=== PATIENT | female | born 1970 | race Caucasian/White ===

== ENCOUNTER 2021-03-11 05:51 | Inpatient (IN) | payer OTHER ==
[2021-03-11] VITALS (32 sets, daily range): BP systolic 65–144; BP diastolic 27–119
[~2021-03-11] VITALS: Ht 180.3 cm; Wt 103.7 kg
--- NOTE | ~2021-03-11 | EMS ---
[address] [address] EMS Patient Care Report Name: RIKI RADFORD Room #: REG [facility]UELA Thomas#: [id number] Admission: 03/11/21 Attend Phys: Discharge: Date of : 70 Report #: [id number] THIS REPORT FOR: //name// Report Transmitted: 03/11/2021 05:54 EMS Care Summary [place], [place]/[facility] Incident [id number] @ 03/11/2021 05:20 Incident Location [address] [place] [address]-A Patient RIKI RADFORD Female, 50 Years 1970 Patient Address [address] [place], [place] [id number] Patient History Chronic Obstructive Pulmonary Disease (COPD),Diabetes,Hypertension (HTN),Hyperlipidemia,Schizophrenia,Sleep Apnea,Chronic Kidney Disease,Novel Coronavirus (COVID-19), Patient Allergies No known allergies, Chief Complaint altered LOC Disposition Transported [place] Reason [place] [facility] [place] SOB when they checked on her. pt normally on CPAP with 2L 02, all night. staff unable to obtain O2sat. we find pt in bed w/ head elevated, laboring to breath @ 50/min. she normally will answer "yes/no" questions but [address] [address] EMS Patient Care Report Name: RIKI RADFORD Room #: [facility]#: [id number] Admission: 03/11/21 Attend Phys: Discharge: Date of : 70 Report #: [id number] now only grunts and moans. pt ext appear mottled. she has a midline IV R upper arm in place b/c she has been getting IV fluids for dehydration. pt has rec 2 liters fluid since yesterday per staff. pt 02 sat on CPAP is 70%. pt placed on B, to cot w/ head elevated, EKG, VS, temp 104.5. transport emergency to closest ER. 02 sat increased to 83%, no other changes. report to RN rm 6 Initial Vitals @05:45P: 130,R: 50,SpO2: 83, @05:39P: 130,R: 50,BP: 66/43,GCS: 7,Temp: 104.5F,Glucose: 298,SpO2: 70,Revised Trauma: 7, Assessments @05:30MENTAL:Unresponsive,SKIN:Hot,Mottled,HEENT:Head/Face: No Abnormalities,LUNG SOUNDS:ABDOMEN:PELVIS//GI:EXTREMITIES:Right Arm: Other,PULSE:Radial: 1+ Thready,NEURO:@05:45MENTAL:SKIN:HEENT:LUNG SOUNDS:ABDOMEN:PELVIS//GI:EXTREMITIES:PULSE:NEURO: Impression Altered Mental Status Procedures @05:30ALS AssessmentResponse: Unchanged@05:34StretcherResponse: Unchanged@05:32Oxygen FlowRate: 15 Device: Non Re-breather Mask (NRB) Response: Improved@05:373-Lead ECGResponse: Unchanged Timeline 05:19,Call Received 05:19,Dispatch Notified 05:20,Dispatched 05:22,En Route 05:27,On Scene 05:30,At Patient 05:30,ALS Assessment,Response: Unchanged 05:32,Oxygen FlowRate: 15 Device: Non Re-breather Mask (NRB) Response: Improved 05:34,Stretcher,Response: Unchanged 05:37,3-Lead ECG,Response: Unchanged 05:39,BP: 66/43 M,PULSE: 130,RR: 50 R,SPO2: 70 Ox,ETCO2: ,B,PAIN: ,GCS: 7, 05:39,Depart Scene 05:45,BP: / M,PULSE: 130,RR: 50 R,SPO2: 83 Ox,ETCO2: ,BG: ,PAIN: ,GCS: , 05:47,At Destination 06:10,Call Closed Disclaimer v1.1 Copyright 2020 [employer] [place] [address] EMS Patient Care Report Name: RIKI RADFORD Room #: REG MANUEL[facility] Thomas#: [id number] Admission: 03/11/21 Attend Phys: Discharge: Date of : 70 Report #: [id number] This EMS Care Summary contains data elements from the applicable legal record (which may be displayed differently). It is designed to provide pertinent information for the following purposes: continuity of care, clinical quality, and state data reporting. The complete legal record is available to ED staff and administrators of the receiving hospital in [facility]'s Patient Tracker. All data is provided "as is."
[2021-03-11 06:15] LABS: HEMATOCRIT 40.6 % (37.0-47.0); HEMOGLOBIN 11.7 gm/dL (12.0-15.0); MCH 26.8 pg (26.0-34.0); MCHC 28.8 g/dL (28.0-37.0); MCV 93.2 fL (80.0-100.0); PLATELET COUNT 160 thou/uL (150-400); RBC 4.35 mil/uL (4.20-5.00); RDW 18.4 % (10.5-14.5); WBC 13.9 thou/uL (4.0-11.0)
[2021-03-11 06:37] LABS: ALBUMIN 2.4 g/dL (3.4-5.0); CALCIUM 8.5 mg/dL (8.5-10.1); CREATININE 3.8 mg/dL (0.6-1.0); POTASSIUM 4.6 mmol/L (3.5-5.1); TOTAL BILIRUBIN 0.3 mg/dL (0.2-1.0); TOTAL PROTEIN 7.1 g/dL (6.4-8.2)
[2021-03-11 08:36] LABS: ABSOLUTE NEUTROPHILS 12.1 thou/uL (1.4-8.2); NUCLEATED RBCS 2 /100WBC
[2021-03-11 08:37] LABS: ANISOCYTOSIS 2+
--- NOTE | 2021-03-11 09:25 | EKG ---
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 : 1970 Requested By: Jeremy Lott Order Number: [id number] MD: Troy Burgess Measurements Intervals [place] Rate: 129 P: -24 MO: 128 QRS: -5 QRSD: 56 T: QT: 350 QTc: 513 Interpretive Statements Sinus tachycardia Paired ventricular premature complexes Aberrant conduction of SV complex(es) Consider right atrial enlargement Nonspecific repol abnormality, diffuse leads Minimal ST elevation, inferior leads Prolonged QT interval No previous ECG available for comparison Electronically Signed On 03-11-2021 9:25:36 CDT by Troy Burgess [email or web address] <ELECTRONICALLY SIGNED> By: Troy Burgess MD, [facility] 03/11/21924 Troy Burgess MD, [facility] /EPI
[2021-03-11 10:36] LABS: BE(vivo) -16.8 mmol/L (-2 to +3); HCO3 9.5 mmol/L (22.0-26.0); sO2 98.7 % (92.0-98.0)
[2021-03-11 10:37] LABS: PCO2 24.6 mmHg (35.0-45.0); pH 7.205 (7.360-7.450)
[2021-03-11 15:11] LABS: CREATININE 3.5 mg/dL (0.6-1.0); MAGNESIUM 2.1 mg/dL (1.8-2.4)
[2021-03-11 15:15] LABS: CALCIUM 6.1 mg/dL (8.5-10.1)
--- NOTE | 2021-03-11 15:33 | 2DMMODE ---
[facility] [place] [address] 2 D/M-MODE ECHOCARDIOGRAM Name: RIKI RADFORD Room #: 248-P ADM IN M.R.#: [id number] Admission: 03/11/21 Attend Phys: Garrick Ge MD Discharge: Date of : 70 Report #: [id number] THIS REPORT FOR: cc: Nicolas Hendricks MD, Srinath MD Park, Jin S. MD ~ APPROVED REPORT Study performed: 03/11/2021 14:43:51 EXAM: Limited 2D, Doppler, and color-flow Echocardiogram Patient Location: ER Status: routine BSA: 2.48 HR: 160 bpm BP: 65/37 mmHg Rhythm: Tachycardia Other Information Study Quality: Poor/very limited exam Technically limited study due to patient on vent in trendelenburg position. Morbid obesity, tachycardia. Indications Tacycardia, hypotensive, respiratory failure. Hx: COPD, COVID-19 (12/2020). Aortic Valve AoV Peak Yair.: 1.36 m/s AO Peak Gr.: 7.42 mmHg Tricuspid Valve TR Peak Yair.: 2.32 m/s RAP Estimate: 5.00 mmHg TR Peak Gr.: 21.47 mmHg PA Pressure: 26.00 mmHg Left Ventricle Technically limited study Left ventricle is normal size. Left ventricular systolic function appears normal (60%). This study is not technically sufficient to allow evaluation of the LV diastolic function. Right Ventricle Appears normal in size and function. [facility] [address] [place] [address] 2 D/M-MODE ECHOCARDIOGRAM Name: RIKI RADFORD Room #: 248-P ADM IN M.R.#: [id number] Admission: 03/11/21 Attend Phys: Garrick Ge MD Discharge: Date of : 70 Report #: [id number] Atria Both atria appear normal in size. Aortic Valve The aortic valve is not well visualized. No aortic regurgitation is noted. There is no aortic valvular stenosis. Mitral Valve There is mitral annular calcification. Trace mitral regurgitation. Tricuspid Valve The tricuspid valve is normal in structure. Trace tricuspid regurgitation. Pulmonic Valve Pulmonic valve is not well visualized. Great Vessels IVC is normal in size and collapses >50% with inspiration. Pericardium There is no pericardial effusion. <Conclusion> Technically limited study Left ventricle is normal size. Left ventricular systolic function appears normal (60%). Appears normal in size and function. Both atria appear normal in size. The aortic valve is not well visualized. Trace mitral regurgitation. Trace tricuspid regurgitation. <ELECTRONICALLY SIGNED> By: Jeffrey Guzman MD 03/11/21 1532 [id number] 1532 Jeffrey Guzman MD /INF
[2021-03-11 17:06] LABS: HEMATOCRIT 33.4 % (37.0-47.0); MCH 26.7 pg (26.0-34.0); MCHC 28.4 g/dL (28.0-37.0); MCV 94.2 fL (80.0-100.0); RBC 3.55 mil/uL (4.20-5.00); WBC 24.1 thou/uL (4.0-11.0)
[2021-03-11 17:12] LABS: CALCIUM 6.7 mg/dL (8.5-10.1); CREATININE 3.9 mg/dL (0.6-1.0); POTASSIUM 4.3 mmol/L (3.5-5.1)
[2021-03-11 17:14] LABS: HEMOGLOBIN 9.5 gm/dL (12.0-15.0)
[2021-03-11] MEDS ORDERED: PAIN RELIEVER325 MG PO (20:43)
[2021-03-11] MEDS ORDERED: VITCB500GO PO (20:43)
[2021-03-11] MEDS ORDERED: LIPITOR40 MG PO (20:44)
[2021-03-11] MEDS ORDERED: ASA81BEC PO (20:44)
[2021-03-11] MEDS ORDERED: CEFTRIAXON1 GM/50 ML IV (20:45)
[2021-03-11] MEDS ORDERED: CHOLECALCIFEROL PO (20:47)
[2021-03-11] MEDS ORDERED: FLEXERIL PO (20:48)
[2021-03-11] MEDS ORDERED: DEPAKOTE500 MG PO (20:49)
[2021-03-11] MEDS ORDERED: DEXAMETHASONE 22 M1 PO (20:50)
[2021-03-11] MEDS ORDERED: ERGOCALCIFEROL PO (20:51)
[2021-03-11] MEDS ORDERED: FUROSEMIDE 20 M20 MG PO (20:52)
[2021-03-11] MEDS ORDERED: IPRATROPIUM/ALBUTERO INH (20:54)
[2021-03-11] MEDS ORDERED: JUVEN PACKET1 EAC1 PO (20:54)
[2021-03-11] MEDS ORDERED: LORAZEPAM 0.50.5 MG PO (20:55)
[2021-03-11] MEDS ORDERED: METFORMIN HCL500 MG PO (20:56)
[2021-03-11] MEDS ORDERED: NUEDEXTA 20-101 EACH PO (20:57)
[2021-03-11] MEDS ORDERED: SUPER THERAVIT1 EACH PO (20:57)
[2021-03-11] MEDS ORDERED: MILK OF MA400 MG/5 M PO (20:57)
[2021-03-11] MEDS ORDERED: OLANZAPINE ODT5 MG PO (20:58)
[2021-03-11] MEDS ORDERED: PROTONIX40 M4 PO (20:59)
[2021-03-11] MEDS ORDERED: KLOR-CON M2020 MEQ PO (21:00)
[2021-03-11] MEDS ORDERED: PLAQUENIL200 MG PO (21:00)
[2021-03-11] MEDS ORDERED: PERCOCET 5-3251 EACH PO (21:00)
[2021-03-11] MEDS ORDERED: QUETIAPINE FUM200 MG PO (21:01)
[2021-03-11] MEDS ORDERED: SERTRALINE HCL100 MG PO (21:02)
[2021-03-11] MEDS ORDERED: SENNA PLUS TAB1 EACH PO (21:02)
[2021-03-11] MEDS ORDERED: ZINC SULFATE PO (21:04)
[2021-03-11 21:23] LABS: URINE BILIRUBIN NEGATIVE (Negative); URINE BLOOD 3+ (Negative); URINE CLARITY CLOUDY; URINE COLOR YELLOW; URINE GLUCOSE-RANDOM* NEGATIVE (Negative); URINE KETONES TRACE (Negative); URINE LEUKOCYTES-REFLEX TRACE (Negative); URINE NITRITE-REFLEX NEGATIVE (Negative); URINE PROTEIN (DIPSTICK) 2+ (Negative); URINE SPECIFIC GRAVITY >= 1.030 (1.005-1.035); URINE UROBILINOGEN 0.2 E.U./dl (0.2-1.0)
[2021-03-11 21:47] LABS: BACTERIA-REFLEX 1-9 Few /HPF (None Seen); SQUAMOUS 0-3 Few /LPF (0-3); URINE WBC-REFLEX 0-5 Rare /HPF (0-5)
[2021-03-11 21:48] LABS: CASTS None Seen /LPF (None Seen); CRYSTALS None Seen /LPF (None Seen); MUCUS 4-6 Moderate strn/LPF (None Seen)
[2021-03-11 21:55] LABS: CALCIUM 6.6 mg/dL (8.5-10.1); CREATININE 4.1 mg/dL (0.6-1.0)
[2021-03-11 22:01] LABS: APTT 50.3 Seconds (24.5-32.8); INR 1.67; PROTIME 17.8 Seconds (10.5-12.1)
[2021-03-11 22:02] LABS: POTASSIUM 5.7 mmol/L (3.5-5.1)
[2021-03-11 22:52] LABS: BE(vivo) -20.5 mmol/L (-2 to +3); HCO3 8.5 mmol/L (22.0-26.0); PCO2 30.2 mmHg (35.0-45.0); PO2 217.9 mmHg (80.0-100.0); sO2 99.1 % (92.0-98.0)
[2021-03-11 22:54] LABS: pH 7.065 (7.360-7.450)
[2021-03-12] VITALS (18 sets, daily range): BP systolic 44–128; BP diastolic 14–65
[2021-03-12 01:15] LABS: CALCIUM 6.5 mg/dL (8.5-10.1); POTASSIUM 4.9 mmol/L (3.5-5.1)
[2021-03-12 03:42] LABS: BE(vivo) -29.1 mmol/L (-2 to +3); HCO3 4.2 mmol/L (22.0-26.0); PCO2 26.6 mmHg (35.0-45.0); PO2 92.5 mmHg (80.0-100.0); sO2 87.3 % (92.0-98.0)
[2021-03-12 03:43] LABS: pH 6.812 (7.360-7.450)
--- NOTE | 2021-03-12 08:10 | EKG ---
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 03/12/21 0810 1407 1407 James Hess MD, [facility] /EPI
--- NOTE | 2021-03-12 12:22 | HC ---
[facility] [place] [address] CONSULTATION Name: RIKI RADFORD Room #: 248-P ADM IN M.R.#: [id number] Admission: 03/11/21 Attend Phys: Garrick Ge MD Discharge: Date of : 70 Report #: [id number] THIS REPORT FOR: cc: Nicolas Hendricks MD, Srinath MD Barry,Avery Powell MD ~ DATE OF SERVICE: 03/11/2021 ATTENDING PHYSICIAN: Garrick Ge M.D. REASON FOR EVALUATION: Septic shock, complicated by multiorgan dysfunction; has severe pneumonitis with respiratory failure and also renal failure. HISTORY OF PRESENT ILLNESS: The patient was examined. This is a 50-year-old woman with extensive medical history given her age, underlying lupus, diabetes mellitus, had previous strokes. She is profoundly disabled, who lives in a facility, was found unresponsive and tachypneic. She was hypoxemic and hypotensive, reportedly had a high-grade temperature elevations as well. She was transported emergently, evaluated in the ER, intubated and maintained on ventilatory support. In terms of evaluation, inflammatory markers were markedly elevated; procalcitonin 17.49. ABGs; pH 7.205, pO2 of 24.6, pO2 of 159 on 100%. Sodium 163, creatinine 3.8, glucose of 345. Lactic acid was elevated at 8, on repeat was down to 4.1. CT of the head was otherwise unremarkable for any acute process. She is now maintained on pressor support. She is markedly hemodynamically unstable with heart rate in the 160s and borderline hypotensive. ALLERGIES: None known. MEDICATIONS: Include vasopressin, norepinephrine, methylprednisolone, Zosyn, vancomycin. PAST MEDICAL HISTORY: COVID infection in 12/2020, has underlying COPD, chronic respiratory failure, diabetes mellitus type 2, systemic lupus erythematosus, obstructive sleep apnea, chronic renal insufficiency, hypertension and previous strokes. SOCIAL HISTORY: Unknown. FAMILY HISTORY: Noncontributory. REVIEW OF SYSTEMS: Not obtainable. [facility] [address] [place] [address] CONSULTATION Name: RIKI RADFORD Room #: 248-[facility] IN .R.#: [id number] Admission: 03/11/21 Attend Phys: Garrick Ge MD Discharge: Date of : 70 Report #: [id number] PHYSICAL EXAMINATION: GENERAL: She appears chronically ill. She is pale, severely ill-appearing, in moderate distress. VITAL SIGNS: Temperature 104.5 axillary, pulse 162, respirations 21, blood pressure is 65/37. SKIN: Somewhat warm, mildly diaphoretic. She is pale. HEENT: ET tube in place. LUNGS: Few scattered coarse breath sounds. ABDOMEN: Distended, mildly firm. No appreciated peritoneal signs. GENITOURINARY AND RECTAL: Deferred. LABORATORY DATA: Lactic acid most recently 4.1, down from 8.0. Electrolytes; sodium 159, potassium 4.0, chloride 126, bicarbonate is 12, anion gap of 21, BUN and creatinine 85 and 3.5. Estimated GFR of 14. ABGs; pH 7.205, pCO2 of 24.6, pO2 of 159; that was on 100%, she is now on 70%. Procalcitonin elevated at 17.49. CBC; white count of 13.9, H and H 11.7 and 40.6, platelets of 160. Coronavirus testing was negative. Liver functions were otherwise unremarkable. Albumin of 2.4, total protein 7.1. IMAGING: Echo showed normal EF of around 60%. Chest x-ray, mild bibasilar atelectasis versus infiltrate. ASSESSMENT AND PLAN: Septic shock, complicated by multiorgan dysfunction including respiratory failure; also has renal failure. We will try to obtain records to see what her baseline is. Agree with broad-spectrum antimicrobial therapy. Her urinalysis had not been collected; we will go ahead and check that as well, adjust the antimicrobial therapy as dictated by the clinical picture such as the creatinine and also cultures. Continue maximal supportive care in the intensive care unit with pressors as required and ventilatory support. Overall, prognosis appears guarded. <ELECTRONICALLY SIGNED> By: Avery Monsalve MD 03/12/21 1222 1519 0034 Avery Monsalve MD /nt
== END 2021-03-12 04:38 | DRG 871 ==
LOC: ER 05:51 → ICU 13:07 → EROBS 13:07 → ICU 15:09
PROVIDERS: Emergency Medicine; Internal Medicine Pulmonary Disease; Specialist; ADMIT Internal Medicine; ATTEND Internal Medicine
PROC: 02HV33Z Insertion of Infusion Device into Superior Vena Cava, Percutaneous Approach (ICD-10-PCS; principal; 2021-03-11)
PROC: 0BH17EZ Insertion of Endotracheal Airway into Trachea, Via Natural or Artificial Opening (ICD-10-PCS; principal; 2021-03-11)
PROC: 5A12012 Performance of Cardiac Output, Single, Manual (ICD-10-PCS; principal; 2021-03-11)
PROC: 5A1935Z Respiratory Ventilation, Less than 24 Consecutive Hours (ICD-10-PCS; principal; 2021-03-11)
DX: A41.9 Sepsis, unspecified organism (principal); N17.0 Acute kidney failure with tubular necrosis; G92 Toxic encephalopathy; K72.00 Acute and subacute hepatic failure without coma; J69.0 Pneumonitis due to inhalation of food and vomit; E43 Unspecified severe protein-calorie malnutrition; R65.21 Severe sepsis with septic shock; J96.21 Acute and chronic respiratory failure with hypoxia; E87.0 Hyperosmolality and hypernatremia; J44.1 Chronic obstructive pulmonary disease with (acute) exacerbation; E87.2 Acidosis; R77.8 Other specified abnormalities of plasma proteins; Z20.822 Contact with and (suspected) exposure to COVID-19; G47.33 Obstructive sleep apnea (adult) (pediatric); R74.01 Elevation of levels of liver transaminase levels; E66.01 Morbid (severe) obesity due to excess calories; N18.30 Chronic kidney disease, stage 3 unspecified; I12.9 Hypertensive chronic kidney disease with stage 1 through stage 4 chronic kidney disease, or unspecified chronic kidney disease; E11.22 Type 2 diabetes mellitus with diabetic chronic kidney disease; M32.9 Systemic lupus erythematosus, unspecified; E78.5 Hyperlipidemia, unspecified; I46.9 Cardiac arrest, cause unspecified; Z86.16 Personal history of COVID-19; Z86.73 Personal history of transient ischemic attack (TIA), and cerebral infarction without residual deficits; Z68.31 Body mass index [BMI] 31.0-31.9, adult
CPT/HCPCS: 10078